=== PATIENT | male | born 1980 | race Caucasian/White ===

== ENCOUNTER 2020-04-25 14:23 | Outpatient (CLI) | payer OTHER, SELFPAY ==
--- NOTE | 2020-04-25 14:30 | ECG_ITS ---
Measurements Intervals [place] Rate: 67 P: 55 OK: 143 QRS: 15 QRSD: 108 T: 22 QT: 408 QTc: 432 Interpretive Statements SINUS RHYTHM DELAYED PRECORDIAL R/S TRANSITION BORDERLINE ECG Electronically Signed On 04-25-2020 14:42:37 REDUCING MACHINE OPERATOR by Juan Barrett D.O.
== END 2020-04-25 14:24 | disposition home or self-care (01) ==
PROVIDERS: PCP Family Medicine Adolescent Medicine; Visit Provider Surgery
DX: Z01.818 Encounter for other preprocedural examination (principal); K40.90 Unilateral inguinal hernia, without obstruction or gangrene, not specified as recurrent; I10 Essential (primary) hypertension
CPT/HCPCS: 36415; 86850; 86900; 86901; 93005

== ENCOUNTER → 2020-04-26 01:44 | Outpatient (CLI) | payer OTHER, SELFPAY ==
[2020-04-26 19:42] LABS: SARS-CoV-2 RNA PCR Negative
== END ==
PROVIDERS: PCP Family Medicine Adolescent Medicine; Visit Provider Surgery
DX: Z01.812 Encounter for preprocedural laboratory examination (principal); Z20.822 Contact with and (suspected) exposure to COVID-19
CPT/HCPCS: C9803; U0003; U0005

== ENCOUNTER 2020-04-29 02:43 | Day surgery (SDC) | payer OTHER, SELFPAY ==
[2020-04-24 08:34] VITALS: BMI 28.6
--- NOTE | 2020-04-28 16:02 | P.PNAN_ITS ---
Anes - Initial Pre Proc Eval Procedure: Operation Date: 04/29/20 08:30 Proposed Procedures p Laparoscopic Left Inguinal Hernia Repair with Mesh, Davinci Assisted - Oren Gilbert DO s Open Umbilical Hernia Repair, Possible Mesh - Oren Gilbert DO Date/Time: 04/28/20 16:02 Surgeon: Oren Gilbert DO Pre Op Diagnosis: left inguinal hernia, umbilical hernia Patient Data Age: 39 Gender: M Height: 1.75 m Weight: 88 kg Allergies Allergy/AdvReac Type Severity Reaction Status Date / Time No Known Allergies Allergy Verified 04/24/20 08:36 Home Medications Medication Instructions Recorded Confirmed Type lisinopril 20 mg tablet 20 mg PO DAILY 04/10/20 04/24/20 History Patient hx anesthesia problems: none Family hx anesthesia problems: none [facility] Past Medical History Medical History HTN (hypertension) since age 14 Surgical History Surgical History History of appendectomy Family History Family History Mother Heart disease Other Heart disease Social History Social History Smoking status: Never smoker Alcohol intake: current Substance use: never Substance use type: does not use Living arrangements: with family 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 Questions were solicited and answers provided to the satisfaction of the patient/family/POA.
[2020-04-29] VITALS (8 sets, daily range): BP systolic 99–141; BP diastolic 57–83; PULSE 53–66; RESP 12–20; TEMP 36.3–36.7; O2SAT 96–100
[2020-04-29] MEDS: LACTATED RINGERS 1,000 ML 30 ML IV CONT ×2 (07:35→10:13)
[2020-04-29] MEDS: ACETAMINOPHEN 500 MG TABLET 1000 MG PO (07:46)
[2020-04-29] MEDS: KETOROLAC 15 MG/ML VIAL (*BKC) IV PUSH (07:46)
--- NOTE | 2020-04-29 08:16 | WPDHPUPDATE1 ---
History and Physical Update Update Date/Time: 04/29/20 08:16 History and Physical has been reviewed, including an updated exam of the patient. There are NO changes in the patient's condition. Risks, benefits, and alternatives have been discussed and questions answered. Patient agrees to proceed with procedure.
[2020-04-29] MEDS: ceFAZolin 2 GM/D5W 50 ML 2 GM/50 ML BAG IVPB (08:36)
[2020-04-29] MEDS: BUPIVACAINE/EPINEPHRINE 0.5% 30 ML VIAL INFILTRATE (09:30)
--- NOTE | 2020-04-29 10:10 | PM.PROC ---
Procedure Note - Detailed Date of procedure: 04/29/20 Pre-op diagnosis: left inguinal hernia, umbilical hernia Post-op diagnosis: same (Direct LIH, umbilical hernia) Procedure performed: 1. Laparoscopic left inguinal hernia repair with Progrip mesh, da Jose assisted 2. Umbilical hernia repair Description of procedure: Procedure as well as risks, benefits, and alternatives were discussed with the patient. Written consent was obtained and placed in chart prior to procedure. Patient was brought back to surgical suite. He was placed supine on operating table. Time-out was done to confirm patient and procedure. He was then intubated by Anesthesia Department. His abdomen was prepped and draped in sterile fashion using chlorhexidine prep. 0.5% bupivacaine with epinephrine was infiltrated at each location for incision. A 3 cm curvilinear incision was made just superior to the umbilicus using a 15 blade scalpel. Careful dissection with electrocautery was carried out down to the linea alba. The umbilical hernia was identified and the hernia sac was dissected free from the umbilical stalk using electrocautery. The hernia sac was then excised and discarded. A 12 millimeter trocar was inserted through the hernia defect and carbon dioxide insufflation was used to create a pneumoperitoneum. A camera was inserted and the abdominal cavity was inspected. The patient was placed in slight Trendelenburg position. An 8 millimeter incision was made on the right lateral abdomen and an 8 millimeter trocar was inserted under direct visualization. Another 8 millimeter incision was made in the left lateral abdomen and an 8 millimeter trocar was inserted under direct visualization. The robotic arms were brought up to the patient's bedside and secured to the ports. The camera and instruments were inserted. I then moved over to the robotic console and took control of the camera and instruments. After careful inspection of the abdominal cavity, I began scoring the peritoneum along the left lower quadrant using scissors with electrocautery. The preperitoneal plane was entered and this was carefully dissected caudally along the inferior epigastric vessels. Careful dissection with scissors with electrocautery and blunt dissection was used to continue this dissection. I dissected far enough laterally to allow for mesh placement, and also dissected medially to identify the pubic arch and Waqas's ligament. The hernia sac was identified and carefully dissected posteriorly. The cord contents were also identified and the peritoneum was carefully dissected far enough posteriorly to allow for mesh placement. Once an adequate pocket was created, I then placed the mesh within the preperitoneal pocket and carefully unfolded it. The mesh was centered on the hernia defect with adequate overlap circumferentially. The inferior edge of the mesh was inspected to ensure that it was far enough away from the peritoneal edge. The mesh appeared in proper position overlying the entire myopectineal orifice. The peritoneum was then closed over the mesh using a 3-0 V-lock running absorbable suture. The robotic instruments were removed. The robotic arms were disengaged from the ports and moved away from the bedside. The patient was flattened out in bed, the ports were removed under direct visualization, and the pneumoperitoneum was released. The umbilical hernia was then repaired. The fascia of the hernia defect was reapproximated using 0 Ethibond [id number] sutures. A total of 3 sutures were placed transversely to approximate the fascia. The repair was inspected and appeared secure. The umbilical stalk was then reapproximated to the fascia using 3 0 Vicryl simple interrupted suture, and the deep dermis was reapproximated using 3 0 Vicryl inverted interrupted sutures. The skin of the incisions was approximated using 4-0 Monocryl subcuticular suture, and Exofin glue was applied on top. The patient was
== END 2020-04-29 12:00 | disposition home or self-care (01) ==
PROVIDERS: PCP Family Medicine Adolescent Medicine; Visit Provider Surgery
PROC: 8E0Y4CZ Robotic Assisted Procedure of Lower Extremity, Percutaneous Endoscopic Approach (ICD-10-PCS; CPT 49650; principal; 2020-04-29 08:30)
PROC: (CPT 49650; 2020-04-29 08:30)
DX: K40.90 Unilateral inguinal hernia, without obstruction or gangrene, not specified as recurrent (principal); K42.9 Umbilical hernia without obstruction or gangrene; I10 Essential (primary) hypertension
CPT/HCPCS: 49650; S2900; 36415; 86850; 86900; 86901; 93005; A9270; C1781; C9803; J0330; J0690; J1100; J1885; J2250; J2405; J2704; J3010; J7030; J7120; U0003; U0005

== ENCOUNTER 2024-04-16 10:03 | Outpatient (CLI) | payer OTHER, SELFPAY ==
--- NOTE | ~2024-04-16 | XR_ITS ---
EXAMINATION: XR elbow LT min 3V DATE: 04/16/2024 10:31 INDICATION: Left elbow pain. TECHNIQUE: 4 views of left elbow were obtained. COMPARISON: None. FINDINGS: Alignment is normal. No fracture. There is mild elbow joint osteoarthritis. No elbow joint effusion. IMPRESSION: 1. Mild elbow joint osteoarthritis. Reviewed, dictated and finalized at location A. K BODY BUILDER APPRENTICE
--- OUTSIDE RECORDS SUMMARY | 2024-04-16 13:11 | XMS_ITS | Clinical Summary ---
Author Organization [facility] [place] [facility] [address] Address [address] [place] [address] Care Team Providers Care Manager Electrical Name Role Phone Cliff Reynoso MD Primary Care Prov ider Allergies No known active allergies Medications lisinopril (PRINIVIL,ZESTRI L) 20 mg tablet 1 tablet daily 03/12/2019 Active Active Problems Problem Noted Date Diagnosed Date Palpitation 04/02/2019 Essential hypertension 04/02/2019 Medical History Medical History Date Comments Hypertension Family History Medical History Relation Name Comments Heart failure Father Heart failure Mother Relation Name Status Comments Father unknown Mother Alive htn Social History Tobacco Use Types Packs/Day Years Used Date Smoking Tobacco: Never Smokeless Tobacco: Current Alcohol Use Standard Drinks/Week Comments Never 0 (1 standard drink = 0.6 oz pur e alcohol) AUDIT-C Answer Date Recorded Frequency of Alcohol Consumption Never 04/02/2019 Average Number of Drinks Not on file 020 Frequency of Binge Drinking Not on file 04/2019 Personal Safety Answer Date Recorded Getting School Help Needed Not on file 05/12 Sex and Gender Information Value Date Recorded Sex Assigned at Not on file Legal 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 Gender Identity Not on file Sexual Orientation Not on file Obstetrics History Last Filed Vital Signs Vital Sign Reading Time Taken Comments Blood Pressure 120/80 04/02/2019 10:07 AM SOUND EQUIPMENT MECHANIC Pulse 72 04/02/2019 10:07 AM SOUND EQUIPMENT MECHANIC Temperature - - Respiratory Rate - - Oxygen Saturation 97% 04/02/2019 10:07 AM SOUND EQUIPMENT MECHANIC Inhaled Oxygen Concentration - - Weight 88.5 kg (195 lb) 04/02/2019 10:07 AM SOUND EQUIPMENT MECHANIC Height 175.3 cm (5' 9 ) 04/02/2019 10:07 AM SOUND EQUIPMENT MECHANIC Body Mass Index 28.8 04/02/2019 10:07 AM SOUND EQUIPMENT MECHANIC Plan of Treatment Not on file Insurance [facility] H[facility]PPO Address: [address] [address] Care Teams Manager Electrical Relationship Specialty Start Date End Date Cliff Reynoso MD PCP - General Family Medicine 11/21/18
--- OUTSIDE RECORDS SUMMARY | 2024-04-16 13:11 | XMS_ITS | Referral Summary ---
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 [employer] Gender Identity Not on file Sexual Orientation Not on file Last Filed Vital Signs Vital Sign Reading Time Taken Comments Blood Pressure 120/80 04/02/2019 10:07 AM OPERATIONS OFFICER [employer] Pulse 72 04/02/2019 10:07 AM OPERATIONS OFFICER [employer] Temperature - - Respiratory Rate - - Oxygen Saturation 97% 04/02/2019 10:07 AM OPERATIONS OFFICER [employer] Inhaled Oxygen Concentration - - Weight 88.5 kg (195 lb) 04/02/2019 10:07 AM OPERATIONS OFFICER [employer] Height 175.3 cm (5' 9 ) 04/02/2019 10:07 AM OPERATIONS OFFICER [employer] Body Mass Index 28.8 04/02/2019 10:07 AM OPERATIONS OFFICER [employer] Plan of Treatment Not on file Insurance [facility] Care Teams Melt Down Furnace Operator Relationship Specialty Start Date End Date Cliff Reynoso MD PCP - General Family Medicine 11/21/18
== END 2024-04-16 10:04 | disposition home or self-care (01) ==
PROVIDERS: PCP Family Medicine Adolescent Medicine
DX: M19.022 Primary osteoarthritis, left elbow (principal)
CPT/HCPCS: 73080